=== PATIENT | female | born 1990 | race Hispanic/Latino ===

== ENCOUNTER 2023-03-22 23:54 | Observation (INO) | payer OTHER ==
[~2023-03-22] VITALS: Ht 154.9 cm; Wt 95.3 kg
[2023-03-23] MEDS ORDERED: FAMOTIDINE 20 MG/2 ML VIAL IV STA (00:26)
[2023-03-23] MEDS ORDERED: LIDOCAINE VISC 2% SOLN 15 ML UDC PO ONE (00:30)
[2023-03-23] MEDS ORDERED: SODIUM CHLORIDE 0.9% 1000ML 1,000 ML IV SCH (00:30)
[2023-03-23] MEDS ORDERED: BELLADONNA ALK/PHENOBARBITAL 5 ML UDC PO ONE (00:30)
[2023-03-23] MEDS ORDERED: MAGNESIUM/ALUMINUM/SIMETHICONE 30 ML UDC PO ONE (00:30)
[2023-03-23] MEDS ORDERED: BELLADONNA ALK/PHENOBARBITAL 5 ML UDC ONE (00:33)
[2023-03-23] MEDS ORDERED: MAGNESIUM/ALUMINUM/SIMETHICONE 30 ML UDC ONE (00:33)
[2023-03-23] MEDS ORDERED: LIDOCAINE VISC 2% SOLN 15 ML UDC ONE (00:33)
[2023-03-23] MEDS ORDERED: FAMOTIDINE 20 MG/2 ML VIAL IV ONE (00:48)
[2023-03-23] MEDS ORDERED: SODIUM CHLORIDE 0.9% 1000ML 1,000 ML ONE (00:48)
[2023-03-23] MEDS ORDERED: IOPAMIDOL 370 MG/ML 100 ML INFUS..BTL INJ ONE (01:01)
[2023-03-23] MEDS ORDERED: PIPERACILLIN/TAZOBACTAM 3.375 GM VIAL ONE (02:04)
[2023-03-23] MEDS ORDERED: ONDANSETRON HCL INJ 2MG/ML 2ML 2 MG/ML VIAL ONE (02:13)
[2023-03-23] MEDS ORDERED: Morphine 4mg INJECTION 4 MG/ML INJ ONE (02:13)
[2023-03-23] MEDS: ONDANSETRON HCL INJ 2MG/ML 2ML 2 MG/ML VIAL IV PRN ×2 (02:16→21:45)
[2023-03-23] MEDS: Morphine 4mg INJECTION 4 MG/ML INJ IV PRN ×2 (02:16→03:35)
[2023-03-23] MEDS: SODIUM CHLORIDE 0.9% 1000ML 1,000 ML IV SCH ×3 (03:35→17:08)
[2023-03-23] MEDS ORDERED: PROMETHAZINE 12.5MG/ NACL 0.9% 50 ML ONE (04:14)
[2023-03-23] MEDS ORDERED: PROMETHAZINE 12.5MG/ NACL 0.9% 12.5 MG/50 ML BAG IV ONE (04:30)
[2023-03-23] MEDS ORDERED: Morphine 4mg INJECTION 4 MG/ML INJ IV PRN (09:15)
[2023-03-23 10:31] LABS: BASOPHILS % 0.2 % (0.0-1.0); EOSINOPHILS # (AUTO) 0.1 (0.0-0.4); EOSINOPHILS % 0.6 % (0.0-6.0); HEMATOCRIT 31.9 % (34.2-44.1); HEMOGLOBIN 10.2 g/dL (12.0-16.0); LYMPHOCYTES # (AUTO) 1.6 (1.0-3.2); MEAN CORPUSCULAR HEMOGLOBIN 28.7 pg (28-32); MEAN CORPUSCULAR VOLUME 89.6 fL (81-99); MONOCYTES # (AUTO) 0.3 (0.2-0.8); MONOCYTES % 3.8 % (4.4-11.3); NEUTROPHILS # (AUTO) 6.5 (2.1-6.9); NEUTROPHILS % 76.3 % (38.7-80.0); PLATELET COUNT 283 x10e3/uL (140-360); RED BLOOD COUNT 3.56 x10e6/uL (3.6-5.1); RED CELL DISTRIBUTION WIDTH 13.2 % (11.7-14.4)
[2023-03-23 10:51] LABS: ALBUMIN 3.3 g/dL (3.5-5.0); ANION GAP 12.4 mmol/L (8-16); CREATININE, SERUM 0.81 mg/dL (0.57-1.11); POTASSIUM 4.4 mmol/L (3.5-5.1)
[2023-03-23] MEDS ORDERED: PROZAC20 MG PO (13:04)
[2023-03-23] MEDS ORDERED: ACETAMINOPHEN 1000 MG/100 ML 100 ML IV ONE (13:04)
[2023-03-23] MEDS ORDERED: ABILIFY5 MG PO (13:04)
[2023-03-23] MEDS ORDERED: XANAX0.5 MG PO (13:04)
[2023-03-23] MEDS ORDERED: FENTANYL CITRATE/PF 100MCG/2 ML INJ ONE ×2 (13:05→15:39)
[2023-03-23] MEDS ORDERED: BUPIVACAINE 0.5%/EPI 30 ML SDV INJ ONE (13:32)
[2023-03-23] MEDS ORDERED: HYDROMORPHONE 1MG/1ML INJ IV PRN (15:15)
[2023-03-23] MEDS ORDERED: FENTANYL CITRATE/PF 100MCG/2 ML INJ IV ONE (15:40)
[2023-03-23 16:24] VITALS: BP 127/79; PULSE 70; RESP 18; TEMP 97.6; O2SAT 98
[2023-03-23 16:25] VITALS: BP 127/79; PULSE 70; RESP 20; TEMP 97.6; O2SAT 98
[2023-03-23] MEDS: HYDROCODONE/APAP 7.5MG-325MG 1 EA TAB PO PRN (17:07)
[2023-03-23 18:26] VITALS: BP 127/79; PULSE 70; RESP 18; RESP 20; TEMP 97.6; O2SAT 98
[2023-03-23 18:30] VITALS: BP 127/79; PULSE 70; RESP 18; TEMP 97.6; O2SAT 98
[2023-03-23 20:00] VITALS: BP 110/72; PULSE 64; RESP 20; TEMP 97.4; O2SAT 100
[2023-03-24] VITALS: BP 107/62; PULSE 63; RESP 18; TEMP 97.8; O2SAT 96
[2023-03-24] MEDS: SODIUM CHLORIDE 0.9% 1000ML 1,000 ML IV SCH ×2 (00:30→13:01)
[2023-03-24] MEDS: HYDROCODONE/APAP 7.5MG-325MG 1 EA TAB PO PRN ×4 (00:31→14:24)
[2023-03-24 04:00] VITALS: BP 103/58; PULSE 67; RESP 16; TEMP 98; O2SAT 100
[2023-03-24 06:36] LABS: BASOPHILS % 0.1 % (0.0-1.0); HEMATOCRIT 30.9 % (34.2-44.1); HEMOGLOBIN 9.8 g/dL (12.0-16.0); LYMPHOCYTES # (AUTO) 1.5 (1.0-3.2); LYMPHOCYTES % 12.9 % (18.0-39.1); MEAN CORPUSCULAR HEMOGLOBIN 28.7 pg (28-32); MEAN CORPUSCULAR HGB CONC 31.7 g/dL (31-35); MEAN CORPUSCULAR VOLUME 90.4 fL (81-99); MONOCYTES # (AUTO) 0.2 (0.2-0.8); MONOCYTES % 2.1 % (4.4-11.3); NEUTROPHILS # (AUTO) 9.7 (2.1-6.9); NEUTROPHILS % 84.5 % (38.7-80.0); PLATELET COUNT 269 x10e3/uL (140-360); RED BLOOD COUNT 3.42 x10e6/uL (3.6-5.1); RED CELL DISTRIBUTION WIDTH 13.3 % (11.7-14.4)
[2023-03-24 07:11] LABS: ALBUMIN 3.2 g/dL (3.5-5.0); ALBUMIN/GLOBULIN RATIO 0.9 (0.8-2.0); ANION GAP 12.1 mmol/L (8-16); CREATININE, SERUM 0.74 mg/dL (0.57-1.11); POTASSIUM 4.1 mmol/L (3.5-5.1)
[2023-03-24 08:21] VITALS: BP 100/74; PULSE 74; RESP 18; TEMP 97.9; O2SAT 99
[2023-03-24 09:00] VITALS: BP 110/76; PULSE 77; RESP 19; TEMP 98.2; O2SAT 100
[2023-03-24 11:30] VITALS: BP 110/76; PULSE 77; RESP 19; TEMP 98.2; O2SAT 100
[2023-03-24 16:38] VITALS: BP 108/67; PULSE 67; RESP 17; TEMP 98.1; O2SAT 99
== END 2023-03-24 17:14 | disposition home or self-care (01) ==
LOC: FSED 03-23 00:12 → ERHOLD 03-23 02:27 → INTOOBSV 03-23 02:27 → ERHOLD 03-23 03:28 → MED/SURG3 03-23 16:01
PROVIDERS: ADMIT Internal Medicine; ATTEND Internal Medicine
DX: K80.00 Calculus of gallbladder with acute cholecystitis without obstruction (principal); E66.01 Morbid (severe) obesity due to excess calories; Z68.39 Body mass index [BMI] 39.0-39.9, adult; F31.9 Bipolar disorder, unspecified
CPT/HCPCS: 0223U; 36415 ×2; 47562; 74177; 76705; 80053 ×2; 80076; 81003; 81025; 85025 ×2; 88304; 96361 ×2; 99285; C1766; C9113; G0378 ×2; J0131; J1170; J2270; J2405; J2543 ×2; J2550; J3010; J7030 ×2; Q9967